=== PATIENT | female | born 1935 | race Caucasian/White ===

== ENCOUNTER 2019-06-13 10:44 | Day surgery (SDC) | payer MEDICARE, MEDICAID ==
[~2019-06-13 10:44] MED LIST: CEFAZOLIN 1 GM/50 ML (PMX) 50 ML IVPB
[2019-06-13] MEDS ORDERED: DESFLURANE 15 MIN (12:00)
[2019-06-13] MEDS ORDERED: GLYCOPYRROLATE 0.4 MG INJ (12:26)
[2019-06-13] MEDS ORDERED: MIDAZOLAM 1 MG/ML 2 ML INJ (12:26)
[2019-06-13] MEDS ORDERED: FENTAnyl 50 MCG/ML VIAL ×2 (12:26→13:42)
[2019-06-13] MEDS ORDERED: PROPOFOL 20 ML (12:26)
[2019-06-13] MEDS ORDERED: NEOSTIGMINE 3 MG/3 ML SYRINGE (12:26)
[2019-06-13] MEDS ORDERED: ROCURONIUM 50 MG INJ (12:26)
[2019-06-13] MEDS ORDERED: DEXAMETHASONE 4 MG/ML 5 ML INJ (12:26)
[2019-06-13] MEDS ORDERED: CEFAZOLIN 1 GM INJ (12:26)
[2019-06-13] MEDS ORDERED: ONDANSETRON 4 MG INJ (12:26)
[2019-06-13] MEDS ORDERED: BUPIVACAINE 0.5% (SDV) 30 ML INJ (12:47)
[2019-06-13] MEDS ORDERED: METHYLPREDNISOLONE ACET 80 MG/ML 1 ML (12:47)
[2019-06-13] MEDS: BUPIVACAINE 0.5% 30 ML VIAL INJ (13:15)
[2019-06-13] MEDS: METHYLPREDNISOLONE ACET 80 MG/ML 1 ML INJ (13:15)
[2019-06-13] MEDS ORDERED: HYDROmorphONE 1 MG/5 ML IV SYRINGE IV (14:00)
[2019-06-13] MEDS ORDERED: FENTAnyl 50 MCG/ML VIAL IV (14:00)
[2019-06-13] MEDS ORDERED: OXYCODONE/ACETAMINOPHEN (5/325) TAB PO ×2 (14:00)
[2019-06-13] MEDS: FENTAnyl 50 MCG/ML VIAL IV ×3 (14:00→14:47)
[2019-06-13] MEDS ORDERED: ONDANSETRON 4 MG INJ IV (14:00)
[2019-06-13] MEDS: HYDROmorphONE 1 MG/5 ML IV SYRINGE IV ×2 (14:03→14:11)
[2019-06-13] MEDS: MEPERIDINE 25 MG INJ IV (14:25)
== END 2019-06-13 16:07 | disposition home or self-care (01) ==
LOC: SDS 10:44
DX: S83.242A Other tear of medial meniscus, current injury, left knee, initial encounter (principal); S83.282A Other tear of lateral meniscus, current injury, left knee, initial encounter; M65.9 Synovitis and tenosynovitis, unspecified; M94.262 Chondromalacia, left knee; I10 Essential (primary) hypertension; X58.XXXA Exposure to other specified factors, initial encounter
CPT/HCPCS: 29880